=== PATIENT | female | born 1955 | race Caucasian/White ===

== ENCOUNTER → 2017-09-23 | Outpatient (CLI) | payer BC ==
[~2017-09-23] VITALS: Ht 172.7 cm; Wt 158.8 kg
[~2017-09-23] MED LIST: ALEVE220 M2 PO; HYZAAR 100-21 TABLET PO; TYLENOL EXTRA500 MG PO
== END | disposition home or self-care (01) ==
LOC: AMB 10:05
PROC: 0DJD8ZZ Inspection of Lower Intestinal Tract, Via Natural or Artificial Opening Endoscopic (ICD-10-PCS; principal; 2017-09-23)
DX: Z12.11 Encounter for screening for malignant neoplasm of colon (principal); K64.1 Second degree hemorrhoids; K57.30 Diverticulosis of large intestine without perforation or abscess without bleeding; I10 Essential (primary) hypertension